=== PATIENT | male | born 1985 | race Caucasian/White ===

== ENCOUNTER 2018-06-29 15:58 | Emergency (ER) | payer SELFPAY ==
[~2018-06-29] VITALS: Ht 162.6 cm; Wt 77.1 kg
[2018-06-29 16:13] VITALS: BP 138/87
[2018-06-29] MEDS ORDERED: NEOMYCIN/POLYMYXIN/BACITRACIN 0.9 GM/1 PKT TP ONE (17:45)
[2018-06-29] MEDS ORDERED: LIDOCAINE 1% 500 MG/50 ML VIAL INJ SCH (17:45)
[2018-06-29 18:21] VITALS: BP 123/75
== END 2018-06-29 18:21 | disposition home or self-care (01) ==
LOC: MED 15:58
DX: S60.457A Superficial foreign body of left little finger, initial encounter (principal); X58.XXXA Exposure to other specified factors, initial encounter; Y93.89 Activity, other specified; Y92.89 Other specified places as the place of occurrence of the external cause; Y99.8 Other external cause status
CPT/HCPCS: 90471; 90715; 99284; J2001